=== PATIENT | male | born 1940 | race Caucasian/White ===

== ENCOUNTER 2025-06-16 11:00 | Outpatient (RCR) | payer MEDICARE, OTHER, SELFPAY ==
--- NOTE | 2025-06-16 10:45 | RT.EKG_ITS ---
APPROVED REPORT Exam: Resting ECG Reason for Exam: CR Intake - Baseline EKG Patient Location: O HR:71 bpm ECG Measurements Heart Rate 71 AXIS [place] 183 P 82 QRSd 169 QRS -88 QT 473 T 102 QTc 515 Conclusion Atrial-ventricular dual-paced rhythm No further analysis attempted due to paced rhythm
== END 2025-06-29 23:59 | disposition home or self-care (01) ==
LOC: CR 11:00
PROVIDERS: PCP Family Medicine; Visit Provider Internal Medicine Cardiovascular Disease
DX: I25.810 Atherosclerosis of coronary artery bypass graft(s) without angina pectoris (principal); Z51.89 Encounter for other specified aftercare
CPT/HCPCS: S9472

== ENCOUNTER 2025-06-28 10:00 | Outpatient (RCR) | payer MEDICARE, OTHER, SELFPAY | END 2025-06-29 23:59 | disposition home or self-care (01) | LOC: CR 10:00 | PROVIDERS: PCP Family Medicine; Visit Provider Internal Medicine Cardiovascular Disease | DX: I25.810 Atherosclerosis of coronary artery bypass graft(s) without angina pectoris (principal); Z51.89 Encounter for other specified aftercare | CPT/HCPCS: S9472 ==

== ENCOUNTER 2025-07-07 10:00 | Outpatient (RCR) | payer MEDICARE, OTHER, SELFPAY ==
--- NOTE | 2025-07-03 10:15 | RT.EKG_ITS ---
APPROVED REPORT Exam: Resting ECG Reason for Exam: Chest Pain Patient Location: O HR:72 bpm ECG Measurements Heart Rate 72 AXIS [place] 204 P 34 QRSd 168 QRS -81 QT 473 T 97 QTc 518 Conclusion Atrial-ventricular dual-paced complexes...other complexes also detected No further analysis attempted due to paced rhythm
== END 2025-07-30 23:59 | disposition home or self-care (01) ==
LOC: CR 10:00
PROVIDERS: PCP Family Medicine; Visit Provider Internal Medicine Cardiovascular Disease
DX: I25.10 Atherosclerotic heart disease of native coronary artery without angina pectoris (principal); I10 Essential (primary) hypertension
CPT/HCPCS: S9472

== ENCOUNTER 2025-07-18 09:39 | Outpatient (RCR) | payer MEDICARE, OTHER, SELFPAY | END 2025-07-30 23:59 | disposition home or self-care (01) | LOC: CR 09:39 | PROVIDERS: PCP Family Medicine; Visit Provider Internal Medicine Cardiovascular Disease ==

== ENCOUNTER 2025-08-28 10:00 | Outpatient (RCR) | payer MEDICARE, OTHER, SELFPAY | END 2025-08-29 23:59 | disposition home or self-care (01) | LOC: CR 10:00 | PROVIDERS: PCP Family Medicine; Visit Provider Internal Medicine Cardiovascular Disease | DX: I25.810 Atherosclerosis of coronary artery bypass graft(s) without angina pectoris (principal); Z51.89 Encounter for other specified aftercare | CPT/HCPCS: S9472 ==

== ENCOUNTER 2025-09-22 10:00 | Outpatient (RCR) | payer MEDICARE, OTHER, SELFPAY | END 2025-09-29 23:59 | disposition home or self-care (01) | LOC: CR 10:00 | PROVIDERS: PCP Family Medicine; Visit Provider Internal Medicine Cardiovascular Disease | DX: I25.810 Atherosclerosis of coronary artery bypass graft(s) without angina pectoris (principal); Z51.89 Encounter for other specified aftercare | CPT/HCPCS: S9472 ==